=== PATIENT | male | born 1965 | race Caucasian/White ===

== ENCOUNTER 2020-02-21 10:06 | Emergency (ER) | payer OTHER | END 2020-02-21 11:12 | disposition home or self-care (01) | LOC: JVIRT 10:06 | DX: R51.9 Headache, unspecified (principal); Z20.828 Contact with and (suspected) exposure to other viral communicable diseases | CPT/HCPCS: C9803; G2012-GT; Q3014-GT; U0003 ==

== ENCOUNTER 2020-04-23 15:24 | Emergency (ER) | payer OTHER | END 2020-04-23 15:47 | disposition home or self-care (01) | LOC: JVIRT 15:24 | DX: Z11.52 Encounter for screening for COVID-19 (principal) | CPT/HCPCS: C9803; G2251-GT; Q3014-GT; U0003 ==

== ENCOUNTER 2020-05-16 12:49 | Emergency (ER) | payer OTHER | END 2020-05-16 13:56 | disposition home or self-care (01) | LOC: JVIRT 12:49 | DX: Z20.822 Contact with and (suspected) exposure to COVID-19 (principal) | CPT/HCPCS: C9803; G2251-GT; U0003 ==